=== PATIENT | male | born 1965 | race Caucasian/White ===

== ENCOUNTER → 2016-12-22 | Outpatient (CLI) | payer BC | LOC: RAD 10:28 | DX: R05 Cough (principal) ==

== ENCOUNTER → 2017-05-30 | Outpatient (CLI) | payer BC | LOC: LAB 08:56 | DX: Z00.00 Encounter for general adult medical examination without abnormal findings (principal); Z12.5 Encounter for screening for malignant neoplasm of prostate ==

== ENCOUNTER → 2018-05-01 | Outpatient (CLI) | payer BC ==
[2018-05-01 16:24] LABS: HEMATOCRIT 43.1 % (42.0-52.0); HEMOGLOBIN 14.9 g/dL (13.5-18.0); MEAN CELL VOLUME 88 fl (78-100); MEAN CORPUSCULAR HEMOGLOBIN 31 pg (27-31); MEAN CORPUSCULAR HGB CONC 35 g/dL (33-37); MEAN PLATELET VOLUME 8.6 fl (7.4-10.4); PLATELET COUNT 255 K/mm3 (130-400); RED BLOOD COUNT 4.89 M/mm3 (4.20-5.60); RED CELL DISTRIBUTION WIDTH 13.8 % (11.5-14.5)
[2018-05-01 16:26] LABS: ALBUMIN 4.2 g/dL (3.5-5.0); BUN/CREATININE RATIO 15.3 (6.0-26.0); CALCIUM 8.5 mg/dL (8.4-10.2); TOTAL BILIRUBIN 0.6 mg/dL (0.2-1.3); TOTAL PROTEIN 7.8 g/dL (6.3-8.2)
[2018-05-01 16:46] LABS: PARTIAL THROMBOPLASTIN TIME 25.9 SECONDS (21.0-32.0); PROTHROMBIN TIME 10.4 SECONDS (9.0-12.0)
[2018-05-01 16:47] LABS: LYMPHOCYTE 15 % (20-51); MONOCYTE 5 % (3-10); NEUTROPHILS 76 % (42-75)
== END ==
LOC: LAB 15:49
PROVIDERS: Nurse Practitioner Family
DX: R50.9 Fever, unspecified (principal); S10.86XA Insect bite of other specified part of neck, initial encounter

== ENCOUNTER → 2018-09-06 | Outpatient (CLI) | payer BC ==
[2018-09-06 09:23] LABS: EOS # 0.3 (0.04-0.40); EOS % 2.9 % (0.0-4.0); HEMATOCRIT 45.3 % (42.0-52.0); HEMOGLOBIN 15.9 g/dL (13.5-18.0); LYMPH# 2.1 (1.50-4.00); MEAN CELL VOLUME 88 fl (78-100); MEAN CORPUSCULAR HEMOGLOBIN 31 pg (27-31); MEAN CORPUSCULAR HGB CONC 35 g/dL (33-37); MEAN PLATELET VOLUME 8.6 fl (7.4-10.4); MONO # 0.5 (0.20-0.80); NEU # 5.8 (1.40-6.50); PLATELET COUNT 293 K/mm3 (130-400); RED BLOOD COUNT 5.15 M/mm3 (4.20-5.60); RED CELL DISTRIBUTION WIDTH 13.5 % (11.5-14.5); WHITE BLOOD COUNT 8.6 K/mm3 (4.8-10.8)
[2018-09-06 09:46] LABS: ALBUMIN 4.2 g/dL (3.5-5.0); CALCIUM 9.2 mg/dL (8.4-10.2); POTASSIUM 4.6 mmol/L (3.6-5.0); TOTAL BILIRUBIN 0.6 mg/dL (0.2-1.3); TOTAL PROTEIN 7.3 g/dL (6.3-8.2)
[2018-09-06 10:28] LABS: ERYTHROCYTE SEDIMENTATION RATE 2 mm/hr (0-20)
[2018-09-07 02:20] LABS: TESTOSTERONE 426 ng/dL (221-716)
== END ==
LOC: LAB 09:12
PROVIDERS: Internal Medicine
DX: Z12.5 Encounter for screening for malignant neoplasm of prostate (principal); Z12.11 Encounter for screening for malignant neoplasm of colon; Z00.00 Encounter for general adult medical examination without abnormal findings

== ENCOUNTER → 2018-09-17 | Outpatient (CLI) | payer BC | LOC: LAB 09:37 | DX: Z12.11 Encounter for screening for malignant neoplasm of colon (principal); Z00.00 Encounter for general adult medical examination without abnormal findings ==

== ENCOUNTER → 2018-11-23 | Outpatient (CLI) | payer BC | LOC: RAD 12:19 | DX: M19.072 Primary osteoarthritis, left ankle and foot (principal) ==

== ENCOUNTER → 2019-02-18 | Outpatient (CLI) | payer BC | LOC: RAD 12:00 | DX: S59.901A Unspecified injury of right elbow, initial encounter (principal); S46.211A Strain of muscle, fascia and tendon of other parts of biceps, right arm, initial encounter ==

== ENCOUNTER → 2019-12-03 | Outpatient (CLI) | payer BC ==
[2019-12-03 08:26] LABS: EOS # 0.2 (0.04-0.40); EOS % 2.9 % (0.0-4.0); HEMATOCRIT 45.9 % (42.0-52.0); HEMOGLOBIN 15.8 g/dL (13.5-18.0); LYMPH# 1.9 (1.50-4.00); MEAN CELL VOLUME 88 fl (78-100); MEAN CORPUSCULAR HEMOGLOBIN 30 pg (27-31); MEAN CORPUSCULAR HGB CONC 34 g/dL (33-37); MEAN PLATELET VOLUME 8.7 fl (7.4-10.4); MONO # 0.5 (0.20-0.80); NEU # 4.9 (1.40-6.50); PLATELET COUNT 284 K/mm3 (130-400); RED CELL DISTRIBUTION WIDTH 13.4 % (11.5-14.5); WHITE BLOOD COUNT 7.6 K/mm3 (4.8-10.8)
[2019-12-03 08:30] LABS: POTASSIUM 4.4 mmol/L (3.5-5.1)
[2019-12-03 08:31] LABS: ALBUMIN 4.4 g/dL (3.5-5.0)
[2019-12-03 08:32] LABS: CALCIUM 8.7 mg/dL (8.3-10.5)
[2019-12-03 08:33] LABS: TOTAL PROTEIN 7.3 g/dL (6.4-8.3)
[2019-12-03 08:35] LABS: TOTAL BILIRUBIN 0.7 mg/dL (0.2-1.2)
[2019-12-03 09:39] LABS: ERYTHROCYTE SEDIMENTATION RATE 4 mm/hr (0-20)
== END ==
LOC: LAB 08:08
PROVIDERS: Internal Medicine
DX: Z00.00 Encounter for general adult medical examination without abnormal findings (principal); Z12.5 Encounter for screening for malignant neoplasm of prostate; Z12.11 Encounter for screening for malignant neoplasm of colon

== ENCOUNTER → 2020-12-10 | Outpatient (CLI) | payer BC ==
[2020-12-10 09:05] LABS: POTASSIUM 4.3 mmol/L (3.5-5.1)
[2020-12-10 09:06] LABS: ALBUMIN 4.3 g/dL (3.5-5.0)
[2020-12-10 09:07] LABS: CALCIUM 8.8 mg/dL (8.3-10.5)
[2020-12-10 09:10] LABS: TOTAL BILIRUBIN 0.6 mg/dL (0.2-1.2)
[2020-12-10 09:15] LABS: MAGNESIUM 2.14 mg/dL (1.60-2.60)
[2020-12-10 09:18] LABS: EOS # 0.1 (0.04-0.40); EOS % 1.9 % (0.0-4.0); HEMATOCRIT 46.2 % (42.0-52.0); LYMPH# 1.5 (1.50-4.00); MEAN CELL VOLUME 88 fl (78-100); MEAN CORPUSCULAR HEMOGLOBIN 30 pg (27-31); MEAN CORPUSCULAR HGB CONC 35 g/dL (33-37); MEAN PLATELET VOLUME 8.7 fl (7.4-10.4); MONO # 0.5 (0.20-0.80); PLATELET COUNT 305 K/mm3 (130-400); RED BLOOD COUNT 5.27 M/mm3 (4.20-5.60); RED CELL DISTRIBUTION WIDTH 13.5 % (11.5-14.5); WHITE BLOOD COUNT 7.3 K/mm3 (4.8-10.8)
== END ==
LOC: LAB 08:35
PROVIDERS: Internal Medicine
DX: Z00.00 Encounter for general adult medical examination without abnormal findings (principal); Z12.11 Encounter for screening for malignant neoplasm of colon; Z12.5 Encounter for screening for malignant neoplasm of prostate

== ENCOUNTER → 2022-02-15 | Outpatient (CLI) | payer BC | LOC: RAD 09:38 | DX: M19.041 Primary osteoarthritis, right hand (principal) ==